=== PATIENT | female | born 1990 | race Caucasian/White ===

== ENCOUNTER → 2016-10-28 | Outpatient (CLI) | payer BC ==
--- NOTE | 2016-10-28 20:45 | NM ---
EXAM DATE: 10/28/16 PATIENT'S AGE: 26 Patient: AYESHA GHOSH Facility: [place], [place] Site Site : 1990 Study: NM Gallbladder [id number]/12/2017 12:02:02 PM Ordering Physician: PATEL Final Report: HISTORY: 26-year-old female. Abdominal pain and anorexia. Technique: 3.3 millicuries of [id number] was injected intravenously. Images of the liver, gallbladder and abdomen were obtained in the anterior projection for 60 minutes. 1.0 mcg CCK was then administered intravenously and imaging was continued for an additional 30 minutes. Findings: There is good uptake of activity by the hepatocytes. There is visualization of the biliary tree, gallbladder and small bowel. In response to CCK administration, there is an abnormally low gallbladder ejection fraction of 28 percent by 30 minutes. Impression: Abnormally low gallbladder ejection fraction of 28 percent. This is consistent with chronic cholecystitis/biliary dyskinesis/acalculous cholecystitis. Dictated by Eric Martell MD @ Oct 28 2016 12:21PM (Electronic Signature) Report Signed by Proxy. MIREILLE
--- NOTE | 2016-10-31 13:15 | US ---
EXAM DATE: 10/28/16 PATIENT'S AGE: 26 Patient: AYESHA GHOSH Facility: [place], [place] Site . Site : 1990 Study: US Abdomen [id number]/12/2017 2:15:49 PM Ordering Physician: Mary Aj Final Report: HISTORY: Abdominal pain. Technique: Limited abdominal ultrasound. Comparison: No prior. Findings: Pancreatic tail is obscured by bowel gas. No abnormality involving the visualized portions of the pancreas. The liver size and echogenicity are normal. There is no intrahepatic or extrahepatic biliary ductal dilatation. The extrahepatic bile duct measures 2 mm which is within normal limits. No gallbladder sludge, stones or wall thickening. No pericholecystic fluid. No abnormality involving the visualized right kidney. No upper abdominal ascites. Impression: 1. No gallstones, gallbladder wall thickening or pericholecystic fluid. 2. No biliary ductal dilatation. Dictated by Masood Coburn MD @ Oct 28 2016 4:00PM (Electronic Signature) Report Signed by Proxy. MIREILLE
== END ==
LOC: MW.US 09:28
PROVIDERS: ATTEND Surgery
DX: R10.9 Unspecified abdominal pain (principal); R63.0 Anorexia; K81.1 Chronic cholecystitis
CPT/HCPCS: 76705; 78227; A9537; J2805

== ENCOUNTER 2016-12-06 06:14 | Day surgery (SDC) | payer BC ==
[~2016-12-06 06:14] MED LIST: Lactated Ringers 1,000 ML IV SCH; ceFAZolin 2 GM in Premix Bag 1 BAG IV ONE
[2016-12-06] MEDS ORDERED: Bupivacaine 0.25%/EPINEPHrine 1:200,000 10 ML SDV ONE (07:23)
[2016-12-06] MEDS ORDERED: Octyl 2-Cyanoacrylate 1 Tube ONE (07:25)
[2016-12-06] MEDS ORDERED: Scopolamine 1.5 MG Transdermal Patch TRDERM PRN (07:32)
--- NOTE | 2016-12-06 07:34 | PCM.PREANE ---
Preanesthetic Assessment - Anesthesia/Transfusion/Family Hx Anesthesia History: Prior Anesthesia Reaction (intraoperative bronchospasm) Other Type of Anesthesia Reaction Comment: caused asthma attack Family History of Anesthesia Reaction: No Transfusion History: No Prior Transfusion(s) - Review of Systems General: No Symptoms Pulmonary: No Symptoms Cardiovascular: No Symptoms Gastrointestinal: No symptoms Neurological: No Symptoms Other: Reports: None - Physical Assessment NPO Status Date: 12/05/16 NPO Status Time: 23:30 O2 Sat by Pulse Oximetry: 99 Respiratory Rate: 16 Vital Signs: Last Vital Signs Temp 37.1 C 12/06/16 06:54 Pulse 73 12/06/16 06:54 Resp 16 12/06/16 06:54 BP 111/65 12/06/16 06:54 Pulse Ox 99 12/06/16 06:54 Height: 1.63 m Weight: 53.977 kg ASA Class: 2 Mental Status: Alert & Oriented x3 Airway Class: Mallampati = 2 Dentition: Reports: Normal Dentition Lungs: Clear to auscultation, Normal respiratory effort Cardiovascular: Regular Rate - Lab Values: Laboratory Last Values Urine HCG, Qual NEGATIVE (NEGATIVE) 12/06/16 06:41 - Allergies Allergies/Adverse Reactions: Allergies Allergy/AdvReac Type Severity Reaction Status Date / Time Latex, Natural Rubber Allergy Rash Verified 12/01/16 16:06 - Anesthesia Plan Pre-Op Medication Ordered: Other (transderm scop) - Acknowledgements Anesthesia Type Planned: General Anesthesia Pt an Appropriate Candidate for the Planned Anesthesia: Yes Alternatives and Risks of Anesthesia Discussed w Pt/Guardian: Yes Pt/Guardian Understands and Agrees with Anesthesia Plan: Yes Additional Comments: hx asthma- relatively inactive, on no meds, smoker, preg negqtive PreAnesthesia Questionnaire - Past Health History Medical/Surgical History: Denies Medical/Surgical History Other HEENT History: wears glasses/contacts Cardiovascular History: Reports: None Respiratory History: Reports: Asthma Other Respiratory History: uses inhaler Gastrointestinal History: Reports: GERD Genitourinary History: Reports: None [employer] History: Reports: None Other OB/BYN History: ovarian cysts, left ovary removed at age 17 Musculoskeletal History: Reports: Fracture Other Musculoskeletal History: hx of fx toe Neurological History: Reports: None Psychiatric History: Reports: Anxiety, Depression, PTSD Other Psychiatric History: took herself off of all medications 2 years ago Endocrine/Metabolic History: Reports: None Hematologic History: Reports: None Immunologic History: Reports: None Oncologic (Cancer) History: Reports: None Dermatologic History: Reports: None - Infectious Disease History Infectious Disease History: Reports: Chicken Pox - Past Surgical History Head Surgeries/Procedures: Reports: None HEENT Surgical History: Reports: Tonsillectomy Cardiovascular Surgical History: Reports: None Respiratory Surgical History: Reports: None GI Surgical History: Reports: None Female Surgical History: Reports: Oophorectomy, Other (See Below) Other Female Surgeries/Procedures: states has had 3 surgeries on ovary Endocrine Surgical History: Reports: None Neurological Surgical History: Reports: None Musculoskeletal Surgical History: Reports: None Oncologic Surgical History: Reports: None - SUBSTANCE USE Smoking Status *Q: Current Every Day Smoker Tobacco Use Within Last Twelve Months: Cigarettes Recreational Drug Use History: No 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, Heroin, Marijuana/Hashish, 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 - HOME MEDS Home Medications: Home Meds Albuterol [IJD: Albuterol HFA] 1 puff INH ASDIRECTED PRN 12/01/16 [History] Norelgestromin/Ethin.Estradiol [Xulane Patch] 1 patch TOP WEEKLY 12/01/16 [ History] Omeprazole Magnesium [Prilosec Otc] 20 mg PO DAILY 12/01/16 [History] - CURRENT (IN HOUSE) MEDS Current Meds: Current Medications Lactated Ringer's (Ringers, Lactated) 1,000 mls @ 125 mls/hr IV ASDIRECTED PINA Last Admin: 12/06/16 06:57 Dose: 125 mls/hr Discontinued Medications Bupivacaine HCl/Epinephrine Bitart (Marcaine 0.25%/Epinephrine 1:200,000) Confirm Administered Dose 20 ml .ROUTE .STK-MED ONE Stop: 12/06/16 07:24 Cefazolin Sodium/Dextrose 2 gm (/ Premix) 50 mls @ 100 mls/hr IV ONETIME ONE Stop: 12/06/16 05:29 Octyl Cyanoacrylate (Dermabond Advance) Confirm Administered Dose 1 applic .ROUTE .STK-MED ONE Stop: 12/06/16 07:26
[2016-12-06] MEDS ORDERED: Lidocaine 2% 5 ML SDV ONE (07:42)
[2016-12-06] MEDS ORDERED: Midazolam 1 MG/ML 2 ML SDV ONE (07:42)
[2016-12-06] MEDS ORDERED: fentaNYL 100 MCG/2 ML SDV ONE (07:42)
[2016-12-06] MEDS ORDERED: Rocuronium 10 MG/ML 10 ML Syringe ONE (07:42)
[2016-12-06] MEDS ORDERED: Propofol 200 MG/20 ML SDV ONE (07:42)
[2016-12-06] MEDS ORDERED: Succinylcholine/Normal Saline 200 MG/10 ML Syringe ONE (07:42)
[2016-12-06] MEDS ORDERED: ceFAZolin 1 GM Vial ONE (08:14)
[2016-12-06] MEDS ORDERED: Sodium Chloride 0.9% 20 ML ONE (08:14)
[2016-12-06] MEDS ORDERED: HYDROmorphone 2 MG/ML Syringe ONE (08:27)
[2016-12-06] MEDS ORDERED: fentaNYL 250 MCG/5 ML SDV ONE (08:38)
[2016-12-06] MEDS ORDERED: Neostigmine Methylsulfate 1 MG/ML 5 ML Syringe ONE (08:46)
[2016-12-06] MEDS ORDERED: Ondansetron 4 MG/2 ML SDV ONE (08:46)
[2016-12-06] MEDS ORDERED: Ketorolac 30 MG/ML SDV ONE (08:50)
[2016-12-06] MEDS ORDERED: Acetaminophen/oxyCODONE 325-10 MG Tab PO PRN (09:13)
--- NOTE | 2016-12-06 09:13 | PCM.OPNOTE ---
- General Post-Op/Procedure Note Date of Surgery/Procedure: 12/06/16 Operative Procedure(s): lap sánchez Findings: gb is yellow and green and attached to surrounding organs, sw chronic cholecystitis; wall is not thickened; [id number] Pre Op Diagnosis: chronic and acute biliary dyskinesis Post-Op Diagnosis: chronic cholecystitis Anesthesia Technique: General ET tube Primary Surgeon: Jean Marie Hernandez Pathology: sent Complications: None Condition: Good
[2016-12-06] MEDS: fentaNYL 100 MCG/2 ML SDV IVPUSH PRN ×2 (09:40→09:49)
[2016-12-06] MEDS ORDERED: Acetaminophen 1,000 MG in Premix Bag 1 BAG IV ONE (11:38)
[2016-12-06] MEDS ORDERED: fentaNYL 100 MCG/2 ML SDV IVPUSH PRN (11:39)
[2016-12-06] MEDS ORDERED: Dexamethasone 4 MG/ML SDV IVPUSH ONE (11:40)
--- NOTE | 2016-12-06 12:54 | OR ---
SURGEON: Jean Marie Hernandez MD DATE OF PROCEDURE: 12/06/2016 PREOPERATIVE DIAGNOSIS: Acute on chronic biliary dyskinesia. POSTOPERATIVE DIAGNOSIS: Chronic cholecystitis. PROCEDURE PERFORMED: Laparoscopic cholecystectomy. COMPLICATIONS: None. INTRAOPERATIVE FINDINGS: Gallbladder was yellow and green, also adhesed to surrounding organ, and consistent with chronicity. Wall is not thickened and does not seem to have any gross gallstone. There was a large amount of sludge. There was quite a lot of adhesions from prior surgery DESCRIPTION OF PROCEDURE: The patient was taken to the operating room and placed in the supine position. After the intubation of general endotracheal anesthesia, the patient's abdomen was prepped and draped in the usual sterile fashion. Using Optiview, a 12 mm trocar was placed supraumbilically and then followed with pneumoperitoneum. A 5 mm trocar was placed in the epigastrium and two 5 mm trocars placed in the right upper quadrant. The placement of the last three trocars was done under direct video supervision. Upon gaining entrance to the abdominal cavity, an extensive examination was then performed. The gallbladder was located and identified and retracted to the dome of the liver at the triangle of Calot. The cystic duct was clipped three more times and then using the endoscopic clip, was transected with placement of the endoscopic clip and transection was performed with care, ensuring the posterior prong of the instruments were clearly visualized prior to exercising the procedure. The gallbladder was dissected using electrocautery out of the liver bed and then removed using endoscopic bag through the umbilical site. The gallbladder was removed en bloc and there was no bile spillage and this was then followed with extensive irrigation until the bile was clear from blood and bile. The trocars were then removed under direct video supervision. The 12 mm umbilical site was then closed with deep stitches using 0 Vicryl followed with proximal stitches using 3-0 Vicryl and Dermabond. The other three trocar sites were closed with 3-0 Vicryl followed with approximation of skin with Dermabond. The patient was then awakened and extubated and transferred to the recovery room in hemodynamically stable condition. At the conclusion of the surgery, before closing the abdominal wound, instrument count and sponge count were done and were correct. The patient tolerated the procedure well and there were no intraoperative complications. Dr. Hernandez was present through the whole procedure. Just before surgery, a timeout was called. The patient was identified and procedure identified and procedure started. EZEQUIEL / REYES /[id number]
[2016-12-06 12:58] VITALS: BP 115/56
--- NOTE | 2016-12-06 13:41 | PCM48HPAN ---
Post Anesthesia Note - EVALUATION WITHIN 48HRS OF ANESTHETIC Vital Signs in Normal Range: Yes Patient Participated in Evaluation: Yes Respiratory Function Stable: Yes Airway Patent: Yes Cardiovascular Function Stable: Yes Hydration Status Stable: Yes Pain Control Satisfactory: Yes Nausea and Vomiting Control Satisfactory: Yes Mental Status Recovered: Yes
--- NOTE | 2016-12-06 13:42 | PCM.POSTAN ---
POST ANESTHESIA ASSESSMENT - MENTAL STATUS Mental Status: oriented - RESPIRATORY Respiratory Status: respiratory rate WNL, airway patent, O2 saturation stable - CARDIOVASCULAR CV Status: pulse rate WNL, blood pressure stable - GASTROINTESTINAL GI Status: nauseau - PAIN Pain Score: 6 - POST OP HYDRATION Hydration Status: adequate & stable - OBSERVATIONS Free Text/Narrative:: will give iv tylenol, iv decadron and iv fentanyl.
== END 2016-12-06 13:10 | disposition home or self-care (01) ==
LOC: MW.SDS 06:14
PROVIDERS: ATTEND Surgery
PROC: 0FT44ZZ Resection of Gallbladder, Percutaneous Endoscopic Approach (ICD-10-PCS; principal; 2016-12-06)
DX: K81.1 Chronic cholecystitis (principal); R63.0 Anorexia; F17.200 Nicotine dependence, unspecified, uncomplicated
CPT/HCPCS: 47562; 81025; A9270; J0690; J1100; J1170; J1885; J2250; J2405; J3010; J7120; 00790; 88304; J2704

== ENCOUNTER 2017-10-25 23:45 | Emergency (ER) | payer BC ==
[2017-10-26] MEDS ORDERED: Sodium Chloride 0.9% 1,000 ML IV ONE (00:03)
[2017-10-26] MEDS ORDERED: Sodium Chloride 0.9% 10 ML Syringe FLUSH PRN (00:03)
[2017-10-26] MEDS ORDERED: Sodium Chloride 0.9% 2.5 ML Syringe FLUSH PRN (00:03)
[2017-10-26] MEDS ORDERED: Ondansetron 4 MG/2 ML SDV IVPUSH ONE (00:03)
[2017-10-26] MEDS ORDERED: Morphine 10 MG/ML Syringe IVPUSH ONE (00:03)
--- NOTE | 2017-10-26 00:04 | EDM.PDOC ---
ED HPI GENERAL MEDICAL PROBLEM - General Chief Complaint: Abdominal Pain Stated Complaint: ABDOMINAL PAIN Time Seen by Provider: 10/25/17 23:57 - History of Present Illness INITIAL COMMENTS - FREE TEXT/NARRATIVE: HISTORY AND PHYSICAL: History of present illness: The patient is a 27-year-old female the history of PCO S and endometriosis as well as a cholecystectomy and presents with sudden onset of left lower quadrant pain that started a proximally 10 PM while she was having sexual intercourse. Earlier today she had a normal day without any fevers chills nausea vomiting or abdominal pain and she said that they are trying to get and she did a test on Monday that was negative. The patient states she follows at [facility] and has not been told that she has an ovarian cyst that is large recently. The patient states that the pain started suddenly on the left side during sexual intercourse and was not associated with any vaginal bleeding. She did not take anything prior to coming here. She tells me that her left ovary was removed more than 10 years ago and that she only has her right ovary. She had a normal bowel movement earlier today and had 2 episodes of vomiting when the pain started. She is currently very uncomfortable and says it feels better when she lays on her right side. She has never had pain this severe before and it does not radiate to her flank. She has no upper abdominal pain no chest pain and no shortness of breath. Review of systems: As per history of present illness and below otherwise all systems reviewed and negative. Past medical history: As per history of present illness and as reviewed below otherwise noncontributory. Surgical history: As per history of present illness and as reviewed below otherwise noncontributory. Social history: No reported history of drug or alcohol abuse. Family history: As per history of present illness and as reviewed below otherwise noncontributory. Physical exam: General: Well-developed thin female who is nontoxic and very tearful and uncomfortable in the ED. Vital signs have been reviewed by me HEENT: Atraumatic, normocephalic, negative for conjunctival pallor or scleral icterus, mucous membranes moist, throat clear, neck supple, nontender, trachea midline. Lungs: Clear to auscultation, breath sounds equal bilaterally, chest nontender. Heart: S1S2, regular, negative for clicks, rubs, or JVD. Abdomen: Soft, nondistended, and use a tender throughout the entire lower abdomen with some voluntary guarding but no involuntary guarding and no gross rebound but the exam is difficult as the patient doesn't tolerate laying on her back very well.. Negative for masses or hepatosplenomegaly. Negative for costovertebral tenderness. Pelvis: Stable nontender. Genitourinary: Deferred. Rectal: Deferred. Extremities: Atraumatic, negative for cords or calf pain. Neurovascular unremarkable. Neuro: Awake, alert, oriented. Cranial nerves II through XII unremarkable. Cerebellum unremarkable. Motor and sensory unremarkable throughout. Exam nonfocal. Diagnostics: CBC CMP hCG pelvic ultrasound Therapeutics: IV fluids Zofran and morphine, Toradol 0154: All testing results were discussed with the patient and boyfriend at bedside as well as Dr. Hickey who is on-call for Dr. Mcarthur. In light of the clinical statement and the history around the pain both Dr. Hickey and I do not feel that a CAT scan as indicated. Dr. Hickey would like me to give some Toradol and discharge the patient and have her call the office first thing in the morning to check in and if she is still having discomfort they will see her in the clinic and either repeat the ultrasound or do other testing as indicated. The patient says she does feel some improvement since she's been here but is still somewhat uncomfortable but is comfortable with this care plan. Impression: Lower abdominal pain left greater than right, right ovarian cyst likely hemorrhagic with fluid leakage, history of PCOS and endometriosis Definitive disposition and diagnosis as appropriate pending reevaluation and review of above. abdomen Pain Score (Numeric/FACES): 10 - Related Data Allergies Allergy/AdvReac Type Severity Reaction Status Date / Time Latex, Natural Rubber Allergy Rash Verified 12/01/16 16:06 Home Meds: Home Meds Albuterol [IJD: Albuterol HFA] 1 puff INH ASDIRECTED PRN 12/01/16 [History] Norelgestromin/Ethin.Estradiol [Xulane Patch] 1 patch TOP WEEKLY 12/01/16 [ History] Omeprazole Magnesium [Prilosec Otc] 20 mg PO DAILY 12/01/16 [History] Past Medical History - Past Health History Medical/Surgical History: Denies Medical/Surgical History Other HEENT History: wears glasses/contacts Cardiovascular History: Reports: None Respiratory History: Reports: Asthma Other Respiratory History: uses inhaler Gastrointestinal History: Reports: GERD Genitourinary History: Reports: None PARK GUIDE History: Reports: None Other OB/BYN History: ovarian cysts, left ovary removed at age 17 Musculoskeletal History: Reports: Fracture Other Musculoskeletal History: hx of fx toe Neurological History: Reports: None Psychiatric History: Reports: Anxiety, Depression, PTSD Other Psychiatric History: took herself off of all medications 2 years ago Endocrine/Metabolic History: Reports: None Hematologic History: Reports: None Immunologic History: Reports: None Oncologic (Cancer) History: Reports: None Dermatologic History: Reports: None - Infectious Disease History Infectious Disease History: Reports: Chicken Pox - Past Surgical History Head Surgeries/Procedures: Reports: None HEENT Surgical History: Reports: Tonsillectomy Cardiovascular Surgical History: Reports: None Respiratory Surgical History: Reports: None GI Surgical History: Reports: None Female Surgical History: Reports: Oophorectomy, Other (See Below) Other Female Surgeries/Procedures: states has had 3 surgeries on ovary Endocrine Surgical History: Reports: None Neurological Surgical History: Reports: None Musculoskeletal Surgical History: Reports: None Oncologic Surgical History: Reports: None Social & Family History - Family History Family Medical History: Noncontributory OBGYN: Reports: Other (See Below) Other OBGYN Family History: PCOS cousin and grandmother Oncologic: Reports: Breast, Cervix, Ovarian - Caffeine Use Caffeine Use: Reports: Coffee ED ROS GENERAL - Review of Systems Review Of Systems: ROS reveals no pertinent complaints other than HPI. ED EXAM, GENERAL - Physical Exam Exam: See Below (See dictation) Course - Vital Signs Last Recorded V/S: Last Vital Signs Temp 36.4 C 10/25/17 23:45 Pulse 107 H 10/25/17 23:45 Resp 20 10/25/17 23:45 BP 136/71 10/25/17 23:45 Pulse Ox 95 10/25/17 23:45 - Orders/Labs/Meds Orders: Active Orders 24 hr Category Date Time Status Pelvis Non OB Comp [US] Stat Exams 10/26/17 00:05 Taken UA W/MICROSCOPIC [URIN] Stat Lab 10/26/17 00:46 Ordered Sodium Chloride 0.9% [Saline Flush] Med 10/26/17 00:03 Active 10 ml FLUSH ASDIRECTED PRN Sodium Chloride 0.9% [Saline Flush] Med 10/26/17 00:03 Active 2.5 ml FLUSH ASDIRECTED PRN Saline Lock Insert [OM.PC] Stat Oth 10/26/17 00:02 Ordered Medication Orders Sodium Chloride (Saline Flush) 10 ml FLUSH ASDIRECTED PRN PRN Reason: Keep Vein Open Sodium Chloride (Saline Flush) 2.5 ml FLUSH ASDIRECTED PRN PRN Reason: Keep Vein Open Labs: Laboratory Tests 10/26/17 10/26/17 10/26/17 Range/Units 00:07 00:07 00:08 WBC 10.14 (4.0-11.0) K/uL RBC 4.38 (4.30-5.90) M/uL Hgb 13.5 (12.0-16.0) g/dL Hct 39.4 (36.0-46.0) % MCV 90.0 (80.0-98.0) fL MCH 30.8 (27.0-32.0) pg MCHC 34.3 (31.0-37.0) g/dL RDW Std Deviation 43.5 (28.0-62.0) fl RDW Coeff of Roberto 13 (11.0-15.0) % Plt Count 214 (150-400) K/uL MPV 10.10 (7.40-12.00) fL Neut % (Auto) 34.7 L (48.0-80.0) % Lymph % (Auto) 54.7 H (16.0-40.0) % Gage % (Auto) 5.1 (0.0-15.0) % Eos % (Auto) 4.9 (0.0-7.0) % Baso % (Auto) 0.6 (0.0-1.5) % Neut # (Auto) 3.5 (1.4-5.7) K/uL Lymph # (Auto) 5.6 H (0.6-2.4) K/uL Gage # (Auto) 0.5 (0.0-0.8) K/uL Eos # (Auto) 0.5 (0.0-0.7) K/uL Baso # (Auto) 0.1 (0.0-0.1) K/uL Nucleated RBC % 0.0 /100WBC Nucleated RBCs # 0 K/uL Sodium 144 (136-145) mmol/L Potassium 4.0 (3.5-5.1) mmol/L Chloride 108 H (98-107) mmol/L Carbon Dioxide 24.3 (21.0-32.0) mmol/L BUN 14 (7.0-18.0) mg/dL Creatinine 0.9 (0.6-1.0) mg/dL Est Cr Clr Drug Dosing TNP Estimated GFR (MDRD) > 60.0 ml/min Glucose 86 (74-106) mg/dL Calcium 8.7 (8.5-10.1) mg/dL Total Bilirubin 0.2 (0.2-1.0) mg/dL AST 26 (15-37) IU/L ALT 36 (14-63) IU/L Alkaline Phosphatase 53 (46-116) U/L Total Protein 7.3 (6.4-8.2) g/dL Albumin 4.1 (3.4-5.0) g/dL Globulin 3.2 (2.0-3.5) g/dL Albumin/Globulin Ratio 1.3 (1.3-2.8) HCG, Qual NEGATIVE (NEG) Urine Color Urine Appearance Urine pH (5.0-8.0) Ur Specific Roxton (1.001-1.035) Urine Protein (NEGATIVE) mg/dL Urine Glucose (UA) (NEGATIVE) mg/dL Urine Ketones (NEGATIVE) mg/dL Urine Occult Blood (NEGATIVE) Urine Nitrite (NEGATIVE) Urine Bilirubin (NEGATIVE) Urine Urobilinogen (<2.0) EU/dL Ur Leukocyte Esterase (NEGATIVE) Urine RBC (0-2/HPF) Urine WBC (0-5/HPF) Ur Epithelial Cells (NONE-FEW) Amorphous Sediment (NEGATIVE) Urine Bacteria (NEGATIVE) Urine Mucus (NONE-MOD) 10/26/17 Range/Units 00:46 WBC (4.0-11.0) K/uL RBC (4.30-5.90) M/uL Hgb (12.0-16.0) g/dL Hct (36.0-46.0) % MCV (80.0-98.0) fL MCH (27.0-32.0) pg MCHC (31.0-37.0) g/dL RDW Std Deviation (28.0-62.0) fl RDW Coeff of Roberto (11.0-15.0) % Plt Count (150-400) K/uL MPV (7.40-12.00) fL Neut % (Auto) (48.0-80.0) % Lymph % (Auto) (16.0-40.0) % Gage % (Auto) (0.0-15.0) % Eos % (Auto) (0.0-7.0) % Baso % (Auto) (0.0-1.5) % Neut # (Auto) (1.4-5.7) K/uL Lymph # (Auto) (0.6-2.4) K/uL Gage # (Auto) (0.0-0.8) K/uL Eos # (Auto) (0.0-0.7) K/uL Baso # (Auto) (0.0-0.1) K/uL Nucleated RBC % /100WBC Nucleated RBCs # K/uL Sodium (136-145) mmol/L Potassium (3.5-5.1) mmol/L Chloride (98-107) mmol/L Carbon Dioxide (21.0-32.0) mmol/L BUN (7.0-18.0) mg/dL Creatinine (0.6-1.0) mg/dL Est Cr Clr Drug Dosing Estimated GFR (MDRD) ml/min Glucose (74-106) mg/dL Calcium (8.5-10.1) mg/dL Total Bilirubin (0.2-1.0) mg/dL AST (15-37) IU/L ALT (14-63) IU/L Alkaline Phosphatase (46-116) U/L Total Protein (6.4-8.2) g/dL Albumin (3.4-5.0) g/dL Globulin (2.0-3.5) g/dL Albumin/Globulin Ratio (1.3-2.8) HCG, Qual (NEG) Urine Color YELLOW Urine Appearance CLEAR Urine pH 6.0 (5.0-8.0) Ur Specific Roxton 1.015 (1.001-1.035) Urine Protein NEGATIVE (NEGATIVE) mg/dL Urine Glucose (UA) NEGATIVE (NEGATIVE) mg/dL Urine Ketones NEGATIVE (NEGATIVE) mg/dL Urine Occult Blood NEGATIVE (NEGATIVE) Urine Nitrite NEGATIVE (NEGATIVE) Urine Bilirubin NEGATIVE (NEGATIVE) Urine Urobilinogen 0.2 (<2.0) EU/dL Ur Leukocyte Esterase TRACE (NEGATIVE) Urine RBC NONE SEEN (0-2/HPF) Urine WBC 0-2 (0-5/HPF) Ur Epithelial Cells RARE (NONE-FEW) Amorphous Sediment LIGHT (NEGATIVE) Urine Bacteria FEW (NEGATIVE) Urine Mucus LIGHT (NONE-MOD) Meds: Medications Generic Name Dose Route Start Last Admin Trade Name Freq PRN Reason Stop Dose Admin Sodium Chloride 10 ml 10/26/17 00:03 Saline Flush FLUSH ASDIRECTED PRN Keep Vein Open Sodium Chloride 2.5 ml 10/26/17 00:03 Saline Flush FLUSH ASDIRECTED PRN Keep Vein Open Discontinued Medications Generic Name Dose Route Start Last Admin Trade Name Freq PRN Reason Stop Dose Admin Sodium Chloride 1,000 mls @ 999 mls/hr 10/26/17 00:03 10/26/17 00:10 Normal Saline IV 10/26/17 01:03 999 mls/hr STAT ONE Administration Ketorolac Tromethamine 30 mg 10/26/17 01:54 Toradol IVPUSH 10/26/17 01:55 ONETIME ONE Morphine Sulfate 5 mg 10/26/17 00:03 10/26/17 00:15 Morphine IVPUSH 10/26/17 00:04 5 mg ONETIME ONE Administration Morphine Sulfate 2 mg 10/26/17 01:56 Morphine IVPUSH 10/26/17 01:57 ONETIME ONE Ondansetron HCl 4 mg 10/26/17 00:03 10/26/17 00:15 Zofran IVPUSH 10/26/17 00:04 4 mg ONETIME ONE Administration Departure - Departure Time of Disposition: 02:01 Disposition: Home, Self-Care 01 Condition: Good Clinical Impression: Pelvic pain, Hemorrhagic cyst of ovary - Discharge Information Referrals: PCP,None [Primary Care Provider] - Forms: ED Department Discharge Additional Instructions: The following information is given to patients seen in the emergency department who are being discharged to home. This information is to outline your options for follow-up care. We provide all patients seen in our emergency department with a follow-up referral. The need for follow-up, as well as the timing and circumstances, are variable depending upon the specifics of your emergency department visit. If you don't have a primary care physician on staff, we will provide you with a referral. We always advise you to contact your personal physician following an emergency department visit to inform them of the circumstance of the visit and for follow-up with them and/or the need for any referrals to a consulting specialist. The emergency department will also refer you to a specialist when appropriate. This referral assures that you have the opportunity for followup care with a specialist. All of these measure are taken in an effort to provide you with optimal care, which includes your followup. Under all circumstances we always encourage you to contact your private physician who remains a resource for coordinating your care. When calling for followup care, please make the office aware that this follow-up is from your recent emergency room visit. If for any reason you are refused follow-up, please contact the [facility] emergency department at and ask to speak to the [place] [address] Go home and rest. Please call the clinic first thing in the morning to schedule follow-up and check in with them. Use [id number] ibuprofen or Aleve for discomfort. Return to ER as needed and as discussed. - My Orders Last 24 Hours: My Active Orders 10/26/17 00:02 Saline Lock Insert [OM.PC] Stat 10/26/17 00:03 Sodium Chloride 0.9% [Saline Flush] 10 ml FLUSH ASDIRECTED PRN Sodium Chloride 0.9% [Saline Flush] 2.5 ml FLUSH ASDIRECTED PRN 10/26/17 00:05 Pelvis Non OB Comp [US] Stat 10/26/17 00:46 UA W/MICROSCOPIC [URIN] Stat - Assessment/Plan Last 24 Hours: My Active Orders 10/26/17 00:02 Saline Lock Insert [OM.PC] Stat 10/26/17 00:03 Sodium Chloride 0.9% [Saline Flush] 10 ml FLUSH ASDIRECTED PRN Sodium Chloride 0.9% [Saline Flush] 2.5 ml FLUSH ASDIRECTED PRN 10/26/17 00:05 Pelvis Non OB Comp [US] Stat 10/26/17 00:46 UA W/MICROSCOPIC [URIN] Stat
[2017-10-26 00:38] LABS: CHLORIDE,CL 108 mmol/L (98-107); SODIUM,NA 144 mmol/L (136-145)
[2017-10-26] MEDS ORDERED: Ketorolac 30 MG/ML SDV IVPUSH ONE (01:54)
[2017-10-26] MEDS ORDERED: Morphine 4 MG/ML Syringe IVPUSH ONE (01:56)
[2017-10-26 02:09] VITALS: BP 105/55
--- NOTE | 2017-10-26 17:46 | US ---
EXAM DATE: 10/25/17 PATIENT'S AGE: 27 Patient: AYESHA ANN Facility: [place], [place] Site . Site : 1992 Study: US Pelvis [id number]/10/2018 12:49:54 AM Ordering Physician: Miguel Bowers Final Report: INDICATION: Pelvic pain. Evaluate for torsion or cyst. History of left oophorectomy. No test available. PELVIC ULTRASOUND Technique: Multiple transabdominal sonographic images of the pelvis were performed. Endovaginal scanning was performed for better visualization of the uterus and ovaries. Findings: The uterus is normal in size and contour, measuring 6.7 cm in length. No uterine masses are identified. The endometrium measures 5 mm in thickness and appears homogeneous. No intrauterine gestational sac is visualized. No left ovary is visualized. The right ovary measures 4.6 x 2.7 x 4.4 centimeters and contains a complex hypoechoic area, without internal color Doppler blood flow, measuring approximately 3.7 x 2.0 x 2.9 centimeters. Doppler blood flow is present within the periphery of the right ovary. A small amount of free pelvic fluid is noted. IMPRESSION: 1. 3.7 x 2.0 x 2.9 centimeter complex hypoechoic area within the right ovary. This is favored to represent a right ovarian hemorrhagic cyst. Ectopic is a less likely consideration and correlation with test is recommended to exclude ectopic . 2. Small amount of free pelvic fluid. 3. Nonvisualization of the left ovary. KRAIG SAGE MD [employer] Dictated by Joey Sage MD @ 10/26/2017 1:09:46 AM Dictated by: Joey Sage MD @ 10/26/2017 01:11:02 (Electronic Signature) Report Signed by Proxy. MIREILLE
== END 2017-10-26 02:15 | disposition home or self-care (01) ==
LOC: MW.ED 23:45
DX: N83.201 Unspecified ovarian cyst, right side (principal); K21.9 Gastro-esophageal reflux disease without esophagitis; Z91.040 Latex allergy status; Z79.899 Other long term (current) drug therapy
CPT/HCPCS: 36415; 76856; 80053; 81001; 84703; 85025; 96361; 96374; 96375; 96376; 99284; J1885; J2270; J2405; J7040; 99283

== ENCOUNTER 2017-10-26 17:15 | Day surgery (SDC) | payer BC ==
[2017-10-26] MEDS ORDERED: Morphine 4 MG/ML Syringe IVPUSH ONE (19:15)
[2017-10-26] MEDS ORDERED: Lactated Ringers 1,000 ML IV SCH (19:15)
[2017-10-26] MEDS ORDERED: Bupivacaine 0.25% 10 ML SDV ONE (19:16)
--- NOTE | 2017-10-26 19:22 | PCM.PREANE ---
Preanesthetic Assessment - Anesthesia/Transfusion/Family Hx Anesthesia History: No Prior Anesthesia Other Type of Anesthesia Reaction Comment: caused asthma attack Family History of Anesthesia Reaction: No Transfusion History: No Prior Transfusion(s) Intubation History: Unknown - Review of Systems General: No Symptoms Pulmonary: No Symptoms Cardiovascular: No Symptoms Gastrointestinal: Abdominal Pain Neurological: No Symptoms Other: Reports: None - Physical Assessment O2 Sat by Pulse Oximetry: 97 Respiratory Rate: 18 Vital Signs: Last Vital Signs Temp 37.0 C 10/26/17 18:00 Pulse 75 10/26/17 18:00 Resp 18 10/26/17 18:00 BP 112/67 10/26/17 18:00 Pulse Ox 97 10/26/17 18:00 Height: 1.55 m Weight: 51.5 kg ASA Class: 2E Mental Status: Alert & Oriented x3 Airway Class: Mallampati = 2 Dentition: Reports: Normal Dentition Thyro-Mental Finger Breadths: 3 Mouth Opening Finger Breadths: 3 ROM/Head Extension: Full Lungs: Clear to Auscultation, Normal Respiratory Effort Cardiovascular: Regular Rate, Regular Rhythm - Allergies Allergies/Adverse Reactions: Allergies Allergy/AdvReac Type Severity Reaction Status Date / Time Latex, Natural Rubber Allergy Rash Verified 10/26/17 02:12 - Blood Blood Available: No - Anesthesia Plan Pre-Op Medication Ordered: None - Acknowledgements Anesthesia Type Planned: General Anesthesia Pt an Appropriate Candidate for the Planned Anesthesia: Yes Alternatives and Risks of Anesthesia Discussed w Pt/Guardian: Yes Pt/Guardian Understands and Agrees with Anesthesia Plan: Yes PreAnesthesia Questionnaire - Past Health History Medical/Surgical History: Denies Medical/Surgical History Other HEENT History: wears glasses/contacts Cardiovascular History: Reports: None Respiratory History: Reports: Asthma Other Respiratory History: uses inhaler Gastrointestinal History: Reports: GERD Genitourinary History: Reports: None 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 Other OB/BYN History: ovarian cysts, left ovary removed at age 17 Musculoskeletal History: Reports: Fracture Other Musculoskeletal History: hx of fx toe Neurological History: Reports: None Psychiatric History: Reports: Anxiety, Depression, PTSD Other Psychiatric History: took herself off of all medications 2 years ago Endocrine/Metabolic History: Reports: None Hematologic History: Reports: None Immunologic History: Reports: None Oncologic (Cancer) History: Reports: None Dermatologic History: Reports: None - Infectious Disease History Infectious Disease History: Reports: Chicken Pox - Past Surgical History Head Surgeries/Procedures: Reports: None HEENT Surgical History: Reports: Tonsillectomy Cardiovascular Surgical History: Reports: None Respiratory Surgical History: Reports: None GI Surgical History: Reports: Cholecystectomy Female Surgical History: Reports: Oophorectomy, Other (See Below) Other Female Surgeries/Procedures: states has had 3 laparoscopic surgeries on ovary Endocrine Surgical History: Reports: None Neurological Surgical History: Reports: None Musculoskeletal Surgical History: Reports: None Oncologic Surgical History: Reports: None - SUBSTANCE USE Smoking Status *Q: Light Tobacco Smoker (2-6 cigarettes per day) Tobacco Use Within Last Twelve Months: Cigarettes Recreational Drug Use History: No - HOME MEDS Home Medications: Home Meds Albuterol [IJD: Albuterol HFA] 1 puff INH ASDIRECTED PRN 12/01/16 [History] - CURRENT (IN HOUSE) MEDS Current Meds: Current Medications Lactated Ringer's (Ringers, Lactated) 1,000 mls @ 150 mls/hr IV ASDIRECTED PINA Discontinued Medications Bupivacaine HCl (Sensorcaine-Mpf 0.25%) Confirm Administered Dose 20 ml .ROUTE .STK-MED ONE Stop: 10/26/17 19:17 Morphine Sulfate (Morphine) 4 mg IVPUSH ONETIME ONE Stop: 10/26/17 19:16
[2017-10-26] MEDS ORDERED: Ondansetron 4 MG/2 ML SDV ONE (19:53)
[2017-10-26] MEDS ORDERED: Midazolam 1 MG/ML 2 ML SDV ONE (19:54)
[2017-10-26] MEDS ORDERED: Glycopyrrolate 0.2 MG/ML SDV ONE (19:54)
[2017-10-26] MEDS ORDERED: fentaNYL 100 MCG/2 ML SDV ONE ×2 (19:54→21:19)
[2017-10-26] MEDS ORDERED: Dexamethasone 4 MG/ML 5 ML MDV ONE (19:54)
[2017-10-26] MEDS ORDERED: Propofol 200 MG/20 ML SDV ONE (19:54)
[2017-10-26] MEDS ORDERED: Sugammadex Sodium 200 MG/2 ML VIAL ONE (19:59)
[2017-10-26] MEDS ORDERED: Morphine 10 MG/ML Syringe ONE (20:50)
[2017-10-26] MEDS ORDERED: Ferric Subsulfate Topical Soln 8 GM (8 ML) Bottle ONE (21:50)
[2017-10-26] MEDS ORDERED: Ketorolac 15 MG/ML SDV IVPUSH ONE (22:32)
[2017-10-26] MEDS ORDERED: Acetaminophen/HYDROcodone 325-5 MG Tab PO PRN (22:32)
--- NOTE | 2017-10-26 22:40 | PCM.OPNOTE ---
- General Post-Op/Procedure Note Date of Surgery/Procedure: 10/26/17 Operative Procedure(s): Operative laparoscopy , fulguration of right ruptured ovarian cyst base , evacaution of hemoperitoneum Findings: Moderate hemoperitoneum - 100cc of hemoperitoneum Absent left tube and ovary Normal right tube , right ovary with simple appearing ruptured cyst , with oozing edge Pre Op Diagnosis: Acute pelvic pain r/o ovarian torsion or ruptured hemorrhagic cyst Post-Op Diagnosis: Acute pelvic pain secondary to ruptured ovarian cyst Anesthesia Technique: General LMA Primary Surgeon: Rebecca Ball Anesthesia Provider: Mag Jordan Pathology: None Fluid Replacement, Intraop: 1,100 Output, Urine Amount: 225 EBL in mLs: 50 Complications: None Condition: Good Free Text/Narrative:: Intake & Output 10/26/17 10/26/17 10/26/17 06:59 14:59 22:59 Output Total 225 Balance -225
--- NOTE | 2017-10-26 22:46 | PCM.POSTAN ---
POST ANESTHESIA ASSESSMENT - MENTAL STATUS Mental Status: Alert - VITAL SIGNS Pulse Rate: 98 SaO2: 98 Resp Rate: 16 Blood Pressure: 110/66 Temperature: 37.1 C - RESPIRATORY Respiratory Status: Respiratory Rate WNL - CARDIOVASCULAR CV Status: Pulse Rate WNL - GASTROINTESTINAL GI Status: No Symptoms - PAIN Pain Score: 3 (Mso4 5mg for abd cramps) Free Text/Narrative:: Doing well. Some post cramping. MSO4 given, helpful. Adequate for discharge. - POST OP HYDRATION Hydration Status: Adequate & Stable
[2017-10-27 07:43] VITALS: BP 110/66
--- NOTE | 2017-10-27 07:43 | PCM48HPAN ---
Post Anesthesia Note - EVALUATION WITHIN 48HRS OF ANESTHETIC Vital Signs in Normal Range: Yes Patient Participated in Evaluation: Yes Respiratory Function Stable: Yes Airway Patent: Yes Cardiovascular Function Stable: Yes Hydration Status Stable: Yes Pain Control Satisfactory: Yes Nausea and Vomiting Control Satisfactory: Yes Mental Status Recovered: Yes Pulse Rate: 98 Resp Rate: 18 Temperature: 98.8 F Blood Pressure: 110/66
--- NOTE | 2017-10-27 14:10 | OR ---
SURGEON: OLYA DEGROOT DATE OF PROCEDURE: 10/26/2017 PREOPERATIVE DIAGNOSIS: Acute pelvic pain, rule out ovarian torsion versus ruptured ovarian cyst. POSTOPERATIVE DIAGNOSIS: Acute pelvic pain secondary to ruptured ovarian cyst and hemoperitoneum. PROCEDURE: Operative laparoscopy, fulguration of ruptured right ovarian cyst bed, evacuation of hemoperitoneum. ESTIMATED BLOOD LOSS: 60 mL. IV FLUIDS: 1100 URINE OUTPUT: 225 FINDINGS: Moderate amount of hemoperitoneum noted in the cul-de-sac. There was normal uterus, left tube absent, right ovary with a simple cyst which had ruptured and was oozing on the edges. BRIEF HISTORY: The patient is a 27-year-old, para 0, who was seen in the ER a day prior with acute pelvic pain. The patient was given narcotics and pain medication and discharged home; however, the pain was not improved. The patient came to the office in severe pain, an ultrasound was done. The ultrasound showed moderate hemoperitoneum. Based on this, the patient was offered a diagnostic laparoscopy versus pain management with serial ultrasounds. The patient opted for diagnostic laparoscopy due to severe pain. Beta hCG was negative. DESCRIPTION OF PROCEDURE: The patient was taken to the operating room, where general anesthesia was performed without difficulty. The patient was placed in dorsal lithotomy position and prepared and draped in the normal sterile fashion. Attention was turned to the perineum, where a speculum was used to expose the cervix. Tenaculum was used to grasp the anterior lip of the cervix. The uterus was sounded to 8 mm. The uterine manipulator was placed without difficulty. Then, attention was then paid to the abdomen where, Marcaine was placed in the umbilical fold. The trocar was placed in with direct entry. Entry was confirmed with low abdominal pressure. The pneumoperitoneum was inflated to 15 mmHg. Then, the right and left trocars were placed about 2cm medial and superior to the anterior iliac spine under direct visualization. The uterus was manipulated. The hemoperitoneum was evacuated. The bed of the ovarian cyst on the right side was noted to be oozing. The Kleppinger was used to burn, coagulate the edges of the ovary for hemostasis . Irrigation was done. Hemostasis was noted. Then, the pressure of the abdomen was reduced to 10mmhg. Hemostasis was still confirmed. Instrument was removed. Pneumoperitoneum of the abdomen was released from trocar . Trocar was then removed . All instrument and pad count were correct x2. The laparoscopic incision was sutured with 4-0 Monocryl. Steri-Strips were applied, and Band-Aid and Tegaderm were also applied on the wound. The patient tolerated the procedure well, and she was taken to the recovery room in stable condition. LACHO CHAMBERS /[id number]
== END 2017-10-27 09:10 | disposition home or self-care (01) ==
LOC: MW.SDS 17:15 → MW.MS 17:16 → MW.SDS 10-27 09:10
PROVIDERS: ATTEND Obstetrics & Gynecology
DX: N83.201 Unspecified ovarian cyst, right side (principal); K66.1 Hemoperitoneum; F41.9 Anxiety disorder, unspecified; F31.9 Bipolar disorder, unspecified; J45.909 Unspecified asthma, uncomplicated; K21.9 Gastro-esophageal reflux disease without esophagitis; F17.210 Nicotine dependence, cigarettes, uncomplicated; Z91.040 Latex allergy status; Z90.89 Acquired absence of other organs; Z90.49 Acquired absence of other specified parts of digestive tract
CPT/HCPCS: 36415; 58662; 85025; A9270; J1100; J1885; J2250; J2270; J2405; J3010; J3490; J7120; J2704

== ENCOUNTER 2018-02-01 02:51 | Emergency (ER) | payer BC ==
[2018-02-01 03:07] VITALS: BP 137/75
--- NOTE | 2018-02-01 03:34 | EDM.PDOC ---
ED HPI GENERAL MEDICAL PROBLEM - General Chief Complaint: Upper Extremity Injury/Pain Stated Complaint: RIGHT FINGER PAIN Time Seen by Provider: 02/01/18 03:31 Source of Information: Reports: Patient - History of Present Illness INITIAL COMMENTS - FREE TEXT/NARRATIVE: HISTORY AND PHYSICAL: History of present illness: []Several hours prior to arrival patient fell on outstretched hand she has swelling over the hyperthenar eminence no redness warmth or open lesion no bruising painful movement of the thumb as well as tenderness in the snuffbox entire limb is neurovascularly intact Review of systems: As per history of present illness and below otherwise all systems reviewed and negative. Past medical history: As per history of present illness and as reviewed below otherwise noncontributory. Surgical history: As per history of present illness and as reviewed below otherwise noncontributory. Social history: No reported history of drug or alcohol abuse. Family history: As per history of present illness and as reviewed below otherwise noncontributory. Physical exam: HEENT: Atraumatic, normocephalic, pupils reactive, negative for conjunctival pallor or scleral icterus, mucous membranes moist, throat clear, neck supple, nontender, trachea midline. Lungs: Clear to auscultation, breath sounds equal bilaterally, chest nontender. Heart: S1S2, regular, negative for clicks, rubs, or JVD. Abdomen: Soft, nondistended, nontender. Negative for masses or hepatosplenomegaly. Negative for costovertebral tenderness. Pelvis: Stable nontender. Genitourinary: Deferred. Rectal: Deferred. Extremities: Atraumatic, negative for cords or calf pain. Neurovascular unremarkable. hand as per history of present illness Neuro: Awake, alert, oriented. Cranial nerves II through XII unremarkable. Cerebellum unremarkable. Motor and sensory unremarkable throughout. Exam nonfocal. Diagnostics: [Right hand 3 views ] Therapeutics: [ Toradol 60 IM Thumb spica splint ] rest ice ibuprofen Follow-up with hand specialty clinic Impression: [ right hand injury ] Cannot rule out scaphoid fracture Definitive disposition and diagnosis as appropriate pending reevaluation and review of above. Right Hand Pain Score (Numeric/FACES): 9 - Related Data Allergies Allergy/AdvReac Type Severity Reaction Status Date / Time Latex, Natural Rubber Allergy Rash Verified 10/26/17 02:12 Home Meds: Home Meds . [No Known Home Meds] 02/01/18 [History] Past Medical History - Past Health History Medical/Surgical History: Denies Medical/Surgical History Other HEENT History: wears glasses/contacts Cardiovascular History: Reports: None Respiratory History: Reports: Asthma Other Respiratory History: uses inhaler Gastrointestinal History: Reports: GERD Genitourinary History: Reports: None GEOTECHNICAL INTERN History: Reports: Endometriosis Other GEOTECHNICAL INTERN History: ovarian cysts, left ovary removed at age 17 Musculoskeletal History: Reports: Fracture Other Musculoskeletal History: hx of fx toe Neurological History: Reports: None Psychiatric History: Reports: Anxiety, Depression, PTSD Other Psychiatric History: took herself off of all medications 2 years ago Endocrine/Metabolic History: Reports: None Hematologic History: Reports: None Immunologic History: Reports: None Oncologic (Cancer) History: Reports: None Dermatologic History: Reports: None - Infectious Disease History Infectious Disease History: Reports: Chicken Pox - Past Surgical History Head Surgeries/Procedures: Reports: None HEENT Surgical History: Reports: Tonsillectomy Cardiovascular Surgical History: Reports: None Respiratory Surgical History: Reports: None GI Surgical History: Reports: Cholecystectomy Female Surgical History: Reports: Oophorectomy, Other (See Below) Other Female Surgeries/Procedures: states has had 3 laparoscopic surgeries on ovary Endocrine Surgical History: Reports: None Neurological Surgical History: Reports: None Musculoskeletal Surgical History: Reports: None Oncologic Surgical History: Reports: None Social & Family History - Family History Family Medical History: Noncontributory OBGYN: Reports: Other (See Below) Other OBGYN Family History: PCOS cousin and grandmother Oncologic: Reports: Breast, Cervix, Ovarian - Tobacco Use Smoking Status *Q: Current Every Day Smoker Years of Tobacco use: 4 Packs/Tins Daily: 0.3 - Caffeine Use Caffeine Use: Reports: Coffee, Energy Drinks Review of Systems - Review of Systems Review Of Systems: See Below ED EXAM, GENERAL - Physical Exam Exam: See Below Course - Vital Signs Last Recorded V/S: Last Vital Signs Temp 97.5 F 02/01/18 03:06 Pulse 95 02/01/18 03:06 Resp 18 02/01/18 03:06 BP 137/75 02/01/18 03:06 Pulse Ox 97 02/01/18 03:06 - Orders/Labs/Meds Orders: Active Orders 24 hr Category Date Time Status Hand Comp Min 3V Rt [CR] Stat Exams 02/01/18 03:05 Taken Departure - Departure Time of Disposition: 03:33 Disposition: Home, Self-Care 01 Condition: Good Clinical Impression: Injury of right hand - Discharge Information Referrals: PCP,None [Primary Care Provider] - Additional Instructions: Thumb spica Late left hand duty only recommended until follow-up with hand specialist call phone number below to schedule appropriate follow-up Medication as prescribed [facility] [place] - Plastic Surgery [address], [facility] [address] [place] [address] The following information is given to patients seen in the emergency department who are being discharged to home. This information is to outline your options for follow-up care. We provide all patients seen in our emergency department with a follow-up referral. The need for follow-up, as well as the timing and circumstances, are variable depending upon the specifics of your emergency department visit. If you don't have a primary care physician on staff, we will provide you with a referral. We always advise you to contact your personal physician following an emergency department visit to inform them of the circumstance of the visit and for follow-up with them and/or the need for any referrals to a consulting specialist. The emergency department will also refer you to a specialist when appropriate. This referral assures that you have the opportunity for follow-up care with a specialist. All of these measure are taken in an effort to provide you with optimal care, which includes your follow-up. Under all circumstances we always encourage you to contact your private physician who remains a resource for coordinating your care. When calling for follow-up care, please make the office aware that this follow-up is from your recent emergency room visit. If for any reason you are refused follow-up, please contact the [facility] emergency department at and asked to speak to the emergency department charge nurse. - My Orders Last 24 Hours: My Active Orders 02/01/18 03:05 Hand Comp Min 3V Rt [CR] Stat - Assessment/Plan Last 24 Hours: My Active Orders 02/01/18 03:05 Hand Comp Min 3V Rt [CR] Stat
[2018-02-01] MEDS ORDERED: Ketorolac 60 MG/2 ML SDV IM ONE (03:35)
--- NOTE | 2018-02-01 10:14 | CR ---
EXAM DATE: 02/01/18 PATIENT'S AGE: 27 Patient: AYESHA ANN Facility: [place], [place] Site . Site : 1990 Study: XRay Extremity Right Hand [id number]/16/2018 3:24:22 AM Ordering Physician: Doctor Villegas Final Report: Indication: Fall. Pain Technique: Three views of the right hand Comparison: None available Findings: Bones: Alignment is normal. No fractures or bone lesions. Joint spaces: Unremarkable. Soft tissues: Unremarkable. Impression: Negative. Dictated by Lakhwinder Rao MD @ 02/01/2018 3:44:47 AM Dictated by: Lakhwinder Rao MD @ 02/01/2018 03:44:52 (Electronic Signature) Report Signed by Proxy. MIREILLE
== END 2018-02-01 04:05 | disposition home or self-care (01) ==
LOC: MW.ED 02:51
DX: S69.91XA Unspecified injury of right wrist, hand and finger(s), initial encounter (principal); F17.210 Nicotine dependence, cigarettes, uncomplicated; J45.909 Unspecified asthma, uncomplicated; W19.XXXA Unspecified fall, initial encounter
CPT/HCPCS: 73130; 96372; 99283; J1885